=== PATIENT | male | born 1980 | race Caucasian/White ===

== ENCOUNTER 2021-01-09 13:27 | Emergency (ER) | payer OTHER, MEDICARE ==
[~2021-01-09 13:27] MED LIST: DOXYCYCLINE HY100 MG PO; NORCO 5-325 TA1 EACH PO
[2021-01-09] MEDS ORDERED: IBU800 MG PO (15:18)
[2021-01-09] MEDS ORDERED: MEDROL DOSEPAK 24 MG PO (15:18)
[2021-01-09] MEDS ORDERED: BACLOFEN10 MG PO (15:18)
== END 2021-01-09 15:30 | disposition home or self-care (01) ==
LOC: ER1 13:27
DX: M54.42 Lumbago with sciatica, left side (principal); I10 Essential (primary) hypertension; E78.5 Hyperlipidemia, unspecified
CPT/HCPCS: 99283; J1885

== ENCOUNTER → 2021-05-15 | Outpatient (CLI) | payer BC ==
[~2021-05-15] MED LIST changes: +BACLOFEN10 MG PO; +IBU800 MG PO; +MEDROL DOSEPAK 24 MG PO
== END ==
LOC: CT 05-10 10:30
DX: R22.1 Localized swelling, mass and lump, neck (principal)
CPT/HCPCS: 70491; Q9967